=== PATIENT | male | born 1960 | race Caucasian/White ===

== ENCOUNTER 2021-09-14 05:47 | Day surgery (SDC) | payer MEDICARE ==
[2021-09-08 12:13] LABS: BASOPHILS % (AUTO) 0.3 % (0-1); EOSINOPHILS # (AUTO) 0.1 X10'3 (0-0.9); EOSINOPHILS % (AUTO) 2.7 % (0-6); LYMPHOCYTES # (AUTO) 1.8 X10'3 (1.1-4.8); LYMPHOCYTES % (AUTO) 36.2 % (21-51); MEAN CORPUSCULAR HEMOGLOBIN 30.6 PG (27.0-31.0); MEAN CORPUSCULAR HGB CONC 34.5 g/dL (33.0-36.5); MEAN CORPUSCULAR VOLUME 88.5 FL (78-98); MEAN PLATELET VOLUME 8.2 FL (7.4-10.4); MONOCYTES # (AUTO) 0.6 X10'3 (0-0.9); MONOCYTES % (AUTO) 11.7 % (2-12); NEUTROPHILS # (AUTO) 2.4 X10'3 (1.8-7.7); NEUTROPHILS % (AUTO) 49.1 % (42-75); PRE OP HEMATOCRIT 42.1 % (42.0-52.0); PRE OP HEMOGLOBIN 14.5 g/dL (14.0-17.9); PRE OP PLATELET COUNT 210 X10'3 (140-440); RED BLOOD COUNT 4.76 X10'6 (4.70-6.10); RED CELL DISTRIBUTION WIDTH 13.3 % (11.5-14.5)
[2021-09-08 12:16] LABS: PRE OP PROTIME 10.2 SECONDS (9.0-12.0)
[2021-09-08 12:19] LABS: ALBUMIN 3.6 G/DL (3.4-5.0); ALBUMIN/GLOBULIN RATIO 0.9 (1.1-1.5); ALKALINE PHOSPHATASE 89 IU/L (46-116); BLOOD UREA NITROGEN 18 MG/DL (7-18); BUN/CREATININE RATIO 16.7 (5.4-32.0); CALCIUM 8.9 MG/DL (8.5-10.1); CHLORIDE 107 MMOL/L (99-107); CREATININE 1.08 MG/DL (0.60-1.10); PRE OP ALT 45 U/L (30-65); PRE OP ANION GAP 6 (8-16); PRE OP AST 29 U/L (10-37); PRE OP BILIRUB, TOTAL 0.5 MG/DL (0.0-1.0); PRE OP GLUCOSE 111 MG/DL (70-104); PRE OP POTASSIUM 4.2 MMOL/L (3.4-5.1); PRE OP SODIUM 143 MMOL/L (135-145); TOTAL PROTEIN 7.4 G/DL (6.4-8.2); eGFR 70 ML/MIN
[2021-09-14] VITALS (11 sets, daily range): BP systolic 123–148; BP diastolic 67–88
[~2021-09-14] VITALS: Ht 188 cm; Wt 72.6 kg
[~2021-09-14 05:47] MED LIST: ATOR10TA70 PO; ESZO3TAB44 PO; HYDR4TAB55 PO; METF-1203 PO; METH-806 PO; QUET100T34 PO; TIZA-205 PO; diazepam 5mg tablet PO ONE; famotidine 20mg tablet PO ONE; oxymetazoline 15 ML nasal spray NS ONE; ringers solution, lacted 1,000 ML IV SCH
[2021-09-14] MEDS ORDERED: diazepam 5mg tablet PO ONE (06:20)
[2021-09-14] MEDS ORDERED: LIDOCAINE 1%/EPI 1:100,000 inj. 10 ML multi-dose vial ONE (06:34)
[2021-09-14] MEDS ORDERED: methylPREDNISolone acetate 80mg/ml inj**IM only ONE (06:34)
[2021-09-14] MEDS ORDERED: mupirocin 2% ointment 22GM ONE (06:34)
[2021-09-14] MEDS ORDERED: cocaine 4% topical solution 4ml bottle ONE (06:34)
[2021-09-14] MEDS ORDERED: oxymetazoline 15 ML nasal spray NS ONE (06:35)
[2021-09-14] MEDS ORDERED: midazolam 1 mg/ML 2ml injection ONE (08:22)
[2021-09-14] MEDS ORDERED: fentaNYL /PF 50mcg/ml 5ml ampule ONE (08:23)
[2021-09-14] MEDS ORDERED: rocuronium 10mg/ml inj IV ONE (08:37)
[2021-09-14] MEDS ORDERED: propofol inj 20 ML IV ONE ×2 (08:37)
[2021-09-14] MEDS ORDERED: LIDOcaine 2% (20mg/ml) 5ml vial ONE (08:37)
[2021-09-14] MEDS ORDERED: ondansetron/PF 4mg/2ml inj ONE (08:42)
--- NOTE | 2021-09-14 10:15 | NUR ---
Received patient from OR, report received from md. Patient waking up, denies pain, v/s wnl, neurovascular checks intact, scd on, 20g piv to rue, no dressing just sinus packing bilaterally with no active drainage at this time
[2021-09-14] MEDS ORDERED: salt irrigation nasal spray 45 ML SPRAY NS PRN (10:35)
--- NOTE | 2021-09-14 11:17 | NUR ---
patient packing removed 30min after arrival, and has just recieved ns spray and ointment per md orders
--- NOTE | 2021-09-14 11:45 | NUR ---
PATIENT V/S STABLE, MINIMAL NASAL MDRAINAGE. I HAVE DISCUSSED D/C INSTRUCTIONS WITH PATIENT AND HE HAS VERBALIZED UNDERSTANDING. PIV D/C. SCD OFF. PATIENT SENT HOME WITH SUPPLIES FOR NASAL DRAINAGE RINSING AND CARE WITH ALL INSTRUCTIONS. HIS GAVE TRANSPORT HOME.
== END 2021-09-14 11:45 | disposition home or self-care (01) ==
LOC: PAS 05:47
PROVIDERS: ATTEND Otolaryngology
DX: J32.8 Other chronic sinusitis (principal); J34.3 Hypertrophy of nasal turbinates; F41.9 Anxiety disorder, unspecified; G89.29 Other chronic pain; R73.03 Prediabetes; Z20.822 Contact with and (suspected) exposure to COVID-19; Z79.899 Other long term (current) drug therapy; Z79.01 Long term (current) use of anticoagulants; Z98.890 Other specified postprocedural states; Z79.84 Long term (current) use of oral hypoglycemic drugs
CPT/HCPCS: 31253; 31267; 36415; 61782; 80053; 82948; 85025; 85576; 85610; 85730; 87635; 93005; A6402; C1726; C9250; C9803; J1040; J2001; J2250; J2405; J2704; J3010; J7040; J7120; U0003; U0005; Z7506; Z7508; Z7512; 88304; 88311; A4618; A7000